=== PATIENT | male | born 1965 | race Hispanic/Latino ===

== ENCOUNTER 2017-06-03 13:31 | Emergency (ER) | payer MEDICARE, MEDICAID ==
[2017-06-03 14:08] VITALS: TEMP 97.9
[2017-06-03 14:47] LABS: URINE BILIRUBIN NEGATIVE (NEGATIVE); URINE BLOOD NEGATIVE (NEGATIVE); URINE COLOR Straw (YELLOW); URINE GLUCOSE (UA) NORMAL (Normal); URINE KETONE NEGATIVE (NEGATIVE); URINE LEUKOCYTE ESTERASE NEG Leu/uL (Negative); URINE PROTEIN NEGATIVE (NEGATIVE); URINE UROBILINOGEN NORMAL mg/dL (0.2-1.0); WBC URINE < 1 /hpf (0-5)
--- NOTE | 2017-06-03 15:07 | C.PDOC ---
History Of Present Illness 51 yr old male presents to the ER with complaints of urinary urgency and dripping since last night. Patient reporyts family history of prostate cancer and states he was checked 10 years ago and was normal at the time. Patient reports of discomfort to the lower groin area. Denies fever, chills, nausea, vomiting, abdominal pain, dysuria, hematuria, incontinence, weakness or numbness. Time Seen by Provider: 06/03/17 14:28 Chief Complaint (Nursing): Male Genitourinary History Per: Patient History/Exam Limitations: no limitations Onset/Duration Of Symptoms: Days Past Medical History Reviewed: Historical Data, Nursing Documentation, Vital Signs Vital Signs: Last Vital Signs Temp 97.9 F 06/03/17 14:05 Pulse 78 06/03/17 15:17 Resp 16 06/03/17 15:17 BP 123/74 06/03/17 15:17 Pulse Ox 98 06/03/17 15:17 Family History: States: No Known Family Hx - Social History Hx Alcohol Use: Yes Hx Substance Use: No - Immunization History Hx Tetanus Toxoid Vaccination: No Hx Influenza Vaccination: No Hx Pneumococcal Vaccination: No Review Of Systems Except As Marked, All Systems Reviewed And Found Negative. Constitutional: Negative for: Fever, Chills Gastrointestinal: Negative for: Nausea, Vomiting, Abdominal Pain Genitourinary: Positive for: Other ((+) Urinary urgency ). Negative for: Dysuria, Incontinence, Hematuria Neurological: Negative for: Weakness, Numbness Physical Exam - Physical Exam Appears: Non-toxic, No Acute Distress Skin: Warm, Dry, No Rash Head: Atraumatic, Normacephalic Oral Mucosa: Moist Chest: Symmetrical, No Tenderness Cardiovascular: Rhythm Regular, No Murmur Respiratory: Normal Breath Sounds, No Rales, No Rhonchi, No Stridor, No Wheezing Gastrointestinal/Abdominal: Normal Exam, Soft, No Tenderness, No Guarding, No Rebound Rectal: Normal Exam, Other (Non nondule. Not enlarged. ) Male Genital: Normal Inspection, No Testicular Tenderness, No Testicular Swelling Neurological/Psych: Oriented x3, Normal Speech, Normal Motor ED Course And Treatment O2 Sat by Pulse Oximetry: 97 (RA ) Pulse Ox Interpretation: Normal Medical Decision Making Medical Decision Making: PLAN: * PSA * Urinalysis Disposition Counseled Patient/Family Regarding: Studies Performed, Need For Followup, Rx Given - Disposition Referrals: Kelsey Rider MD [Staff Provider] - Disposition: HOME/ ROUTINE Disposition Time: 15:05 Condition: STABLE Additional Instructions: Follow up with Urology. Call [phone] for PSA results. Prescriptions: Tamsulosin HCl [Flomax] 0.4 mg PO DAILY #5 cap.er.24h Instructions: Dysuria (ED) Forms: [facility] (Polish), General Discharge Instructions - POA Present On Arrival: None - Clinical Impression Clinical Impression: Dysuria - Scribe Statement The provider has reviewed the documentation as recorded by the [place] Provider Attestation: All medical record entries made by the Jordynibe were at my direction and personally dictated by me. I have reviewed the chart and agree that the record accurately reflects my personal performance of the history, physical exam, medical decision making, and the department course for this patient. I have also personally directed, reviewed, and agree with the discharge instructions and disposition.
[2017-06-03 15:18] VITALS: BP 123/74; PULSE 78; RESP 16
[2017-06-03 16:58] VITALS: O2SAT 97
[2017-06-04 21:07] LABS: TOTAL PSA 0.6 ng/mL (<=4.0)
== END 2017-06-03 15:17 | disposition home or self-care (01) ==
LOC: C.ER 13:31
DX: R30.0 Dysuria (principal)

== ENCOUNTER 2017-06-11 10:38 | Emergency (ER) | payer MEDICARE, MEDICAID ==
[2017-06-11 10:44] VITALS: BP 132/85; PULSE 71; TEMP 97.9; O2SAT 96
--- NOTE | 2017-06-11 11:08 | C.PDOC ---
History Of Present Illness 51 y/o male presents to ED requesting "evaluation of his liver". Patient was seen in this ER about 1 week ago (06/03/17) and PSA was ordered. Patient is requesting test results today. Patient states he lives in [facility] but moves around frequently due to "etoh abuse and mental health issues"; has not followed up with doctor since ER visit. Denies any medical complaints on arrival. Time Seen by Provider: 06/11/17 10:46 Chief Complaint (Nursing): Abdominal Pain History Per: Patient History/Exam Limitations: no limitations Current Symptoms Are (Timing): Still Present Reports Recently: Seen In ED (8 days ago) Recent travel outside of the [place]: No Past Medical History Reviewed: Historical Data, Nursing Documentation, Vital Signs Vital Signs: Last Vital Signs Temp 97.9 F 06/11/17 10:41 Pulse 71 06/11/17 10:41 Resp 18 06/11/17 11:46 BP 132/85 06/11/17 10:41 Pulse Ox 96 06/11/17 12:14 Family History: States: Unknown Family Hx - Social History Hx Alcohol Use: No Hx Substance Use: No - Immunization History Hx Tetanus Toxoid Vaccination: No Hx Influenza Vaccination: No Hx Pneumococcal Vaccination: No Review Of Systems Except As Marked, All Systems Reviewed And Found Negative. Constitutional: Negative for: Fever, Chills Cardiovascular: Negative for: Chest Pain, Palpitations Respiratory: Negative for: Cough, Shortness of Breath, Wheezing Gastrointestinal: Negative for: Nausea, Vomiting, Abdominal Pain Skin: Negative for: Rash Neurological: Negative for: Headache, Dizziness Physical Exam - Physical Exam Appears: Non-toxic, No Acute Distress Skin: Warm, Dry Head: Atraumatic, Normacephalic Oral Mucosa: Moist Chest: Symmetrical Cardiovascular: Rhythm Regular Respiratory: Normal Breath Sounds, No Rales, No Rhonchi, No Wheezing Gastrointestinal/Abdominal: Soft, No Tenderness Back: Normal Inspection Extremity: Normal ROM Neurological/Psych: Oriented x3, Normal Speech, Normal Cognition ED Course And Treatment - Laboratory Results Result Diagrams: 06/11/17 11:26 06/11/17 11:26 Lab Interpretation: Normal O2 Sat by Pulse Oximetry: 96 (RA) Pulse Ox Interpretation: Normal Progress Note: Basic bloodwork ordered. Patient eloped ER prior to further treatment. Reassessment Condition: Unchanged Disposition - Disposition Disposition: ELOPEMENT - ER ONLY Disposition Time: 11:50 Condition: STABLE Forms: [facility] (Kinyarwanda) - POA Present On Arrival: None - Clinical Impression Clinical Impression: Abdominal pain - PA / TELEPHONIC NURSE CASE MANAGER / Resident Statement MD/DO has reviewed & agrees with the documentation as recorded. - Scribe Statement The provider has reviewed the documentation as recorded by the Scribe SM All medical record entries made by the Scribe were at my direction and personally dictated by me. I have reviewed the chart and agree that the record accurately reflects my personal performance of the history, physical exam, medical decision making, and the department course for this patient. I have also personally directed, reviewed, and agree with the discharge instructions and disposition.
[2017-06-11 11:35] LABS: BASO # 0.1 K/uL (0.0-0.2); BASO % 1.2 % (0.0-2.0); EOS # 0.1 K/uL (0.0-0.7); EOS % 1.4 % (0.0-4.0); LYMPH # 1.5 K/uL (1.0-4.3); LYMPH % 25.4 % (20.0-40.0); MEAN CORPUSCULAR HEMOGLOBIN 29.9 pg (27.0-31.0); MEAN CORPUSCULAR HGB CONC 33.3 g/dL (33.0-37.0); MEAN PLATELET VOLUME 10.3 fL (7.2-11.7); MONO # 0.7 K/uL (0.0-0.8); NRBC % 0.1 % (0.0-2.0); RED CELL DISTRIBUTION WIDTH 13.6 % (11.5-14.5); WHITE BLOOD COUNT 5.8 K/uL (4.8-10.8)
[2017-06-11 11:41] LABS: CHLORIDE 101 mmol/L (98-107)
[2017-06-11 11:42] LABS: POTASSIUM 4.2 mmol/L (3.6-5.2); SODIUM 137 mmol/L (132-148)
[2017-06-11 11:44] LABS: ALB/GLOB RATIO 1.2 (1.0-2.1); ALKALINE PHOSPHATASE 57 U/L (38-126); AST/SGOT 21 U/L (17-59); BLOOD UREA NITROGEN 17 mg/dL (9-20); CARBON DIOXIDE 21 mmol/L (22-30); GFR AFRICAN-AMERICAN > 60; TOTAL PROTEIN 7.9 g/dL (6.3-8.3)
[2017-06-11 11:45] LABS: ALT/SGPT 28 U/L (21-72); CALCIUM 9.2 mg/dl (8.6-10.4); GLUCOSE,RANDOM 87 mg/dL (75-110)
[2017-06-11 11:47] VITALS: RESP 18
[2017-06-11 11:47] LABS: URINE BILIRUBIN NEGATIVE (NEGATIVE); URINE BLOOD NEGATIVE (NEGATIVE); URINE COLOR Yellow (YELLOW); URINE GLUCOSE (UA) NORMAL (Normal); URINE KETONE NEGATIVE (NEGATIVE); URINE LEUKOCYTE ESTERASE NEG Leu/uL (Negative); URINE PROTEIN NEGATIVE (NEGATIVE); URINE UROBILINOGEN NORMAL mg/dL (0.2-1.0); WBC URINE < 1 /hpf (0-5)
== END 2017-06-11 11:47 | disposition left against medical advice (07) ==
LOC: C.ER 10:38
DX: R10.9 Unspecified abdominal pain (principal)